=== PATIENT | male | born 1990 | race African-American/Black ===

== ENCOUNTER 2017-06-21 12:58 | Emergency (ER) | payer SELFPAY ==
[~2017-06-21] VITALS: Ht 188 cm; Wt 82.3 kg
[2017-06-21 12:59] VITALS: BP 113/64
[2017-06-21] MEDS ORDERED: cefTRIAXone SOD 250 MG VIAL (J0696) IM ONE (13:30)
[2017-06-21] MEDS ORDERED: AZITHROMYCIN 250 MG TAB PO ONE (13:30)
== END 2017-06-21 14:02 | disposition home or self-care (01) ==
LOC: M ED 12:58
DX: A74.9 Chlamydial infection, unspecified (principal); A54.9 Gonococcal infection, unspecified; R30.0 Dysuria; F17.200 Nicotine dependence, unspecified, uncomplicated
CPT/HCPCS: 87491; 87591; 96372; 99282; J0696

== ENCOUNTER → 2018-02-04 | Outpatient (CLI) | payer SELFPAY | LOC: M OUTALCOH 07:46 | DX: F12.20 Cannabis dependence, uncomplicated (principal) ==

== ENCOUNTER 2018-02-14 14:01 | Outpatient (RCR) | payer SELFPAY | END 2018-02-16 | LOC: M OUTALCOH 14:01 | DX: F12.20 Cannabis dependence, uncomplicated (principal); F17.200 Nicotine dependence, unspecified, uncomplicated ==

== ENCOUNTER 2018-02-22 13:30 | Outpatient (RCR) | payer SELFPAY | END 2018-03-18 | LOC: M OUTALCOH 13:30 | DX: F12.20 Cannabis dependence, uncomplicated (principal); F17.200 Nicotine dependence, unspecified, uncomplicated ==

== ENCOUNTER 2018-03-21 10:00 | Outpatient (RCR) | payer SELFPAY | END 2018-04-18 | LOC: M OUTALCOH 03-28 10:00 | DX: F12.20 Cannabis dependence, uncomplicated (principal); F17.200 Nicotine dependence, unspecified, uncomplicated ==

== ENCOUNTER → 2018-09-24 | Outpatient (CLI) | payer SELFPAY | LOC: M OUTALCOH 07:56 | DX: Z13.9 Encounter for screening, unspecified (principal); F12.10 Cannabis abuse, uncomplicated ==

== ENCOUNTER 2018-10-03 14:04 | Outpatient (RCR) | payer SELFPAY | END 2018-10-18 | LOC: M OUTALCOH 14:04 | DX: F12.20 Cannabis dependence, uncomplicated (principal); F17.200 Nicotine dependence, unspecified, uncomplicated ==

== ENCOUNTER 2018-11-14 09:00 | Outpatient (RCR) | payer SELFPAY | END 2018-11-18 | LOC: M OUTALCOH 09:00 | PROVIDERS: ATTEND Psychiatry & Neurology Psychiatry | DX: F12.20 Cannabis dependence, uncomplicated (principal); F17.200 Nicotine dependence, unspecified, uncomplicated; F10.10 Alcohol abuse, uncomplicated ==

== ENCOUNTER 2018-12-05 08:48 | Outpatient (RCR) | payer SELFPAY | END 2018-12-19 | LOC: M OUTALCOH 08:48 | PROVIDERS: ATTEND Psychiatry & Neurology Psychiatry | DX: F12.20 Cannabis dependence, uncomplicated (principal); F17.200 Nicotine dependence, unspecified, uncomplicated; F10.10 Alcohol abuse, uncomplicated ==

== ENCOUNTER 2019-01-02 09:00 | Outpatient (RCR) | payer MEDICAID, SELFPAY | END 2019-01-16 | LOC: M OUTALCOH 09:00 | PROVIDERS: ATTEND Psychiatry & Neurology Psychiatry | DX: F12.20 Cannabis dependence, uncomplicated (principal); F10.10 Alcohol abuse, uncomplicated; F17.200 Nicotine dependence, unspecified, uncomplicated ==

== ENCOUNTER 2019-02-07 13:15 | Outpatient (RCR) | payer OTHER, SELFPAY | END 2019-02-16 | LOC: M OUTALCOH 13:15 | PROVIDERS: ATTEND Psychiatry & Neurology Psychiatry | DX: F12.20 Cannabis dependence, uncomplicated (principal); F10.10 Alcohol abuse, uncomplicated; F17.200 Nicotine dependence, unspecified, uncomplicated ==